=== PATIENT | female | born 1980 | race Caucasian/White ===

== ENCOUNTER 2016-08-12 05:51 | Outpatient (CLI) | payer OTHER ==
[~2016-08-12] VITALS: Ht 165.1 cm; Wt 96.2 kg
[~2016-08-12 05:51] MED LIST: ALBU2.5V52 INH; AZIT-21 PO; PRED10TA PO
--- OUTSIDE RECORDS SUMMARY | 2016-08-12 05:54 | XMS REPORT | Continuity of Care Document ---
Author Author [facility] Organization [facility] Address Unknown Phone Unavailable Allergies Active Description Code Type Severity Reaction Onset Reported/Identified Relationship to Patient Clinical Status Yes No Known Drug Allergies [id number] Drug Allergy Unknown N/ A 04/25/2007 Medications Problems Date Dx Coded Attending Type Code Diagnosis Diagnosed By 2014 TERRY BRIGGS MD R Ot 466.0 2014 TERRY BRIGGS MD R Ot 799.02 10/08/2014 Ot 278.01 10/08/2014 Ot 530.81 10/08/2014 Ot 553.3 10/08/2014 Ot V72.83 06/26/2015 TERRY BRIGGS MD R Ot R60.9 06/26/2015 TERRY BRIGGS MD R Ot R60.9 08/21/2015 PAPITO DICKERSON MD Ot R53.83 08/30/2015 TERRY BRIGGS MD Ot R60.9 Procedures Results Encounters ACCT No. Visit Date/Time Discharge Status Pt. Type Provider Facility Loc./Unit Complaint [id number] 07/15/2014 09:16:00 2014 13:05:00 DIS Inpatient TERRY BRIGGS MD [facility] [address] [id number] 11/19/2012 14:19:00 2012 23:59:59 CLS Outpatient [id number] 08/12/2016 05:51:00 ACT Outpatient PAPITO DICKERSON MD [facility] PREOP REFLUX [id number] 06/23/2015 11:59:00 ACT Outpatient TERRY BRIGGS MD [facility] LAB [id number] 06/12/2015 09:01:00 ACT Outpatient PAPITO DICKERSON MD [facility] LAB [id number] 11/24/2009 07:38:00 Document Registration
[2016-08-12] MEDS ORDERED: OMEP20TA7 PO (14:51)
[2016-08-12] MEDS ORDERED: SUCR1TAB36 PO (14:51)
[2016-08-13] MEDS ORDERED: FLUC100T PO (12:46)
== END 2016-08-12 14:58 ==
LOC: PREOP 05:51
PROVIDERS: ATTEND Surgery Pediatric Surgery
DX: Z01.818 Encounter for other preprocedural examination (principal); K21.9 Gastro-esophageal reflux disease without esophagitis

== ENCOUNTER 2016-08-13 10:40 | Day surgery (SDC) | payer OTHER ==
[~2016-08-13] VITALS: Ht 165.1 cm; Wt 96.2 kg
[~2016-08-13 10:40] MED LIST changes: +OMEP20TA7 PO; +SUCR1TAB36 PO
[2016-08-13] MEDS ORDERED: NS IV 500 ML 500 ML IV PRN (10:55)
[2016-08-13] MEDS ORDERED: NS IV 500 ML 500 ML ONE (10:58)
[2016-08-13 11:00] VITALS: BP 129/95
[2016-08-13] MEDS ORDERED: HURRICAINE EXT TUBE (BENZOCAINE) XX PRN (11:00)
[2016-08-13] MEDS ORDERED: NALOXONE 0.4 MG/ML 1 ML (NARCAN) VIAL IVP PRN (11:00)
[2016-08-13] MEDS ORDERED: FLUMAZENIL (ROMAZICON) 0.1 MG/ML 5 ML VIAL INJ PRN (11:00)
[2016-08-13] MEDS ORDERED: LIDOCAINE JELLY 2% (XYLOCAINE) 5 ML TUBE MM PRN (11:00)
--- NOTE | 2016-08-13 11:03 | Progress Note-Pre Operative ---
Pre-Operative Progress Note H&P Reviewed The H&P was reviewed, patient examined and no changes noted. Date H&P Reviewed: Aug 13, 2016 Time H&P Reviewed: 11:00 Pre-Operative Diagnosis: PAPITO HAYNES MD Aug 13, 2016 11:03 am
--- NOTE | 2016-08-13 11:04 | Conscious Sedation/ASA ---
Conscious Sedation Pre-Proced Time Reviewed: 11:00 ASA Class: 2 Airway Mallampati Classification: ([place] appropriate class) I. II. III, IV Lungs Heart ASA score ASA 1: a normal healthy patient ASA 2: a patient with a mild systemic disease (mid diabetes, controlled hypertension, obesity ASA 3: a patient with a severe systemic disease that limits activity (angina , COPD, prior Myocardial infarction) ASA 4: a patient with an incapacitating disease that is a constant threat to life (CHF, renal failure) ASA 5: a moribund patient not expected to survive 24 hrs. (ruptured aneurysm) ASA 6: a declared brain patient whose organs are being harvested. For emergent operations, add the letter E after the classification Grade 2 Sedation Plan: Analgesia, Amnesia, Plan communicated to team members, Discussed options with patient/fam, Discussed risks with patient/fam Note The patient is an appropriate candidate to undergo the planned procedure, sedation, and anesthesia. The patient immediately re-assessed prior to indication. PAPITO DICKERSON MD Aug 13, 2016 11:04 am
[2016-08-13] MEDS ORDERED: morphine INJ 10 MG/ML 1ML (SYR OR VIAL) IV PRN (11:15)
[2016-08-13] MEDS ORDERED: ONDANSETRON 4 MG/2 ML (SDV) Z0FRAN IV PRN (11:15)
[2016-08-13] MEDS ORDERED: ACETAMINOPHEN 325 MG TABLET/CAPLET (TYLENOL) PO PRN (11:15)
[2016-08-13] MEDS ORDERED: HYDROcodone/APAP 5 MG/325 MG (LORTAB) TAB PO PRN (11:15)
[2016-08-13] MEDS ORDERED: fentaNYL INJECTION 100 MCG/2 ML AMP ONE (11:59)
[2016-08-13] MEDS ORDERED: MIDAZOLAM 2 MG/2 ML (VERSED) VIAL ONE ×5 (11:59→12:17)
[2016-08-13] MEDS ORDERED: HURRICAINE EXT TUBE (BENZOCAINE) ONE (11:59)
[2016-08-13] MEDS ORDERED: LIDOCAINE JELLY 2% (XYLOCAINE) 5 ML TUBE ONE (11:59)
[2016-08-13] MEDS: MIDAZOLAM 2 MG/2 ML (VERSED) VIAL IVP PRN ×5 (12:05→12:17)
[2016-08-13] MEDS: fentaNYL INJECTION 100 MCG/2 ML AMP IVP PRN ×2 (12:06→12:09)
--- NOTE | 2016-08-13 12:45 | Progress Note-Post Operative ---
Post-Operative Progess Note Pre-Operative Diagnosis GERD Post-Operative Diagnosis reflux esophagitis(class B), probable esophageal candidiasis, intact band, moderate gastritis. Post-Op Procedure Note Date of Procedure: Aug 13, 2016 Name of Procedure: EGD with bx and brushings Anesthesia Type CS Estimated blood loss (mL): minimal Specimen(s) collected esophageal brushings, GE jxn, antrum. PAPITO DICKERSON MD Aug 13, 2016 12:45 pm
[2016-08-13] MEDS ORDERED: FLUC100T PO (12:46)
--- NOTE | 2016-08-13 12:47 | Discharge Inst-Surgical ---
D/C Lap Instructions-KIDO New, Converted, or Re-Newed RX: RX on Chart Follow Up PRN Activity as tolerated High Fiber Diet 25g or more per day Avoid Alcohol, Caffeine, Spicy [place] and Acid foods. Drink 64 fluid oz or more of fluids per day. Symptoms to Report: Fever over 101 degree F, Nausea/Vomiting If any problems/questions: Contact your physician or go to Emergency Room PAPITO DICKERSON MD Aug 13, 2016 12:47 pm
[2016-08-13 13:00] VITALS: BP 112/58
[2016-08-13 13:30] VITALS: BP 114/78
[2016-08-13 13:40] VITALS: BP 112/58
--- NOTE | 2016-08-13 20:31 | PROCEDURE REPORT ---
PROCEDURE PHYSICIAN: PAPITO DICKERSON DATE OF PROCEDURE: 08/13/2016 PREOPERATIVE DIAGNOSIS: Gastroesophageal reflux disease. POSTOPERATIVE DIAGNOSES: 1. Reflux esophagitis, class B. 2. Probable esophageal candidiasis. 3. Intact band. 4. Moderate gastritis. PROCEDURE: EGD with biopsy and brushings. SURGEON: Dr. Dickerson. ANESTHESIA: Conscious sedation. ESTIMATED BLOOD LOSS: Minimal. FINDINGS: 1. White plaquish material on the distal esophagus suspicious for an esophageal candidiasis. 2. Reflux esophagitis, class B. 3. Intact band. No band slippage or erosion. 4. Moderate gastritis. DISPOSITION: The patient tolerated the procedure well. BRIEF HISTORY: Ms. Davida Bautista is a 36-year-old female with a history of morbid obesity, medical comorbidities including degenerative joint disease, low back, hips, knees, and ankle pain. She also has a history of bilateral lower extremity edema. She also does have a history of gastroesophageal reflux disease. She reports that this has worsened recently and progressed to regurgitation and nocturnal coughing. She reports that this is worse at night. She is currently on omeprazole 20 mg b.i.d. She states that she is able to tolerate a phase 3 regular diet with protein sources including lean meat, protein 3 times a day. She also reports she is able to take in approximately 1 cup of ground food volume per sitting. She also is able to take in greater than 64 fluid ounces of water daily. The patient was brought to the endoscopy suite, laid in the left lateral decubitus position. After adequate IV pain and sedative medications and conscious sedation anesthesia, the mouthpiece was applied. The endoscope was placed in the mouth, visualizing the pharynx and hypopharyngeal region. Vocal cords, epiglottis and vallecula identified and appeared to be normal. The endoscope was then gently intubated into the esophageal opening and the esophagus insufflated. The endoscope was then advanced through the first, second, and 3rd portions esophagus. At the distal esophagus, there was a white plaquish material coating the circumference of the esophagus most likely indicating esophageal candidiasis. Brushings were taken and sent for culture and sensitivity. The endoscope was then advanced through the GE junction where a reflux esophagitis, class B identified. A biopsy was taken of the GE junction. The gastric pouch was intact and appeared to be normal. The endoscope was easily advanced into the stomach and endoscope retroflexed visualizing an intact band with no erosion or slippage. There was a moderate gastritis. No ulcers, polyps or any neoplasms identified. A biopsy was taken of the antrum with forceps with visualization of good hemostasis. The endoscope was then advanced through the pylorus and into the first and second portions of duodenum which appeared normal with no distal obstructions. The endoscope was then slowly withdrawn while taking a second look and suctioning of residual air with no additional findings. The patient tolerated the procedure well. We will have her continue with medical management with smaller, more frequent meals, avoidance of eating at night, as well as continued high protein diet and once she feels restriction, then to stop eating and to not drink during meals as well as to decrease her caffeine intake. Job ID: [id number] Dictated Date: 08/13/2016 12:40:10 Clinical Systems Educator Date: 08/13/2016 20:23:51 / cynthia
== END 2016-08-13 13:40 | disposition home or self-care (01) ==
LOC: ENDO 10:40
PROVIDERS: ATTEND Surgery Pediatric Surgery
DX: K21.0 Gastro-esophageal reflux disease with esophagitis (principal); K29.70 Gastritis, unspecified, without bleeding; Z98.84 Bariatric surgery status
CPT/HCPCS: 87101; 88305

== ENCOUNTER → 2021-03-30 | Outpatient (CLI) | payer OTHER ==
[~2021-03-30] MED LIST changes: +FLUC100T PO
[2021-03-30 17:02] LABS: BASOPHILS # (AUTO) 0.1 10^3/uL (0.0-0.1); BASOPHILS % (AUTO) 1 % (0-10); EOSINOPHILS # (AUTO) 0.3 10^3/uL (0.0-0.3); EOSINOPHILS % (AUTO) 3 % (0-10); HEMATOCRIT 37 % (35-52); HEMOGLOBIN 12.3 g/dL (11.5-16.0); LYMPHOCYTES # (AUTO) 3.2 10^3/uL (1.0-4.0); LYMPHOCYTES % (AUTO) 32 % (12-44); MEAN CORPUSCULAR HEMOGLOBIN 31 pg (25-34); MEAN CORPUSCULAR HGB CONC 33 g/dL (32-36); MEAN CORPUSCULAR VOLUME 93 fL (80-99); MEAN PLATELET VOLUME 10.2 fL (9.0-12.2); MONOCYTES # (AUTO) 0.5 10^3/uL (0.0-1.0); MONOCYTES % (AUTO) 5 % (0-12); NEUTROPHILS # (AUTO) 5.9 10^3/uL (1.8-7.8); NEUTROPHILS % (AUTO) 59 % (42-75); PLATELET COUNT 285 10^3/uL (130-400); WHITE BLOOD COUNT 9.9 10^3/uL (4.3-11.0)
[2021-03-30 17:15] LABS: ALBUMIN 3.6 GM/DL (3.2-4.5); POTASSIUM 3.6 MMOL/L (3.6-5.0)
[2021-03-30 17:17] LABS: CALCIUM 8.9 MG/DL (8.5-10.1)
[2021-03-30 17:18] LABS: TOTAL PROTEIN 7.2 GM/DL (6.4-8.2)
[2021-03-30 17:20] LABS: BILIRUBIN,TOTAL 0.3 MG/DL (0.1-1.0)
[2021-03-30 17:22] LABS: CREATININE SERUM 0.9 MG/DL (0.60-1.30)
[2021-03-30 17:47] LABS: FREE T4 (FREE THYROXINE) 0.92 NG/DL (0.70-1.48)
== END ==
LOC: LAB 16:28
PROVIDERS: ATTEND Family Medicine
DX: Z13.1 Encounter for screening for diabetes mellitus (principal); Z00.00 Encounter for general adult medical examination without abnormal findings; R05.9 Cough, unspecified; R53.83 Other fatigue; R51.9 Headache, unspecified
CPT/HCPCS: 36415; 80053; 82670; 83001; 83002; 83036; 84144; 84439; 84443; 85025

== ENCOUNTER → 2021-04-03 | Outpatient (CLI) | payer OTHER | LOC: LAB 12:46 | PROVIDERS: ATTEND Family Medicine | DX: Z20.822 Contact with and (suspected) exposure to COVID-19 (principal) | CPT/HCPCS: 36415; 86769 ==

== ENCOUNTER → 2022-09-07 | Outpatient (CLI) | payer OTHER ==
[~2022-09-07] MED LIST changes: +OMEP20TA56 PO; -OMEP20TA7 PO
--- NOTE | 2022-09-07 17:06 | Diagnostic Imaging Report ---
INDICATION: Left shoulder pain. TECHNIQUE: AP, oblique, and transscapular views of the left shoulder were obtained. FINDINGS: No fracture or acute bony abnormality is seen. The joint spaces are unremarkable. IMPRESSION: Negative left shoulder. Dictated by: Dictated on workstation # [id number]
== END ==
LOC: RAD 13:12
PROVIDERS: ATTEND Family Medicine
DX: M25.511 Pain in right shoulder (principal)
CPT/HCPCS: 73030

== ENCOUNTER 2022-10-01 13:29 | Outpatient (RCR) | payer OTHER | END 2022-10-03 | disposition home or self-care (01) | PROVIDERS: ATTEND Family Medicine | DX: M25.512 Pain in left shoulder (principal) ==

== ENCOUNTER 2022-10-18 09:56 | Outpatient (RCR) | payer OTHER | END 2022-11-03 | disposition home or self-care (01) | PROVIDERS: ATTEND Family Medicine | DX: M25.512 Pain in left shoulder (principal) ==

== ENCOUNTER → 2022-10-22 | Outpatient (CLI) | payer OTHER ==
--- NOTE | 2022-10-22 08:58 | Diagnostic Imaging Report ---
EXAMINATION: Magnetic resonance imaging of the left shoulder without contrast. DATE: October 22, 2022. COMPARISON: Left shoulder radiographs September 07, 2022. HISTORY: 42-year-old female, left shoulder pain. TECHNIQUE: Magnetic Resonance Imaging sequences were performed of the shoulder without contrast. FINDINGS: ROTATOR CUFF, LIGAMENTS, TENDONS, AND MUSCLES: The supraspinatus, infraspinatus, teres minor, and subscapularis tendons and muscles are intact. There is normal rotator cuff muscle bulk and signal. LONG HEAD OF BICEPS: The biceps labral attachment and long head of the biceps tendon is intact. The long head of the biceps tendon is normally positioned within the bicipital groove. GLENOHUMERAL JOINT: The humeral head is well positioned relative to the glenoid. The labrum is grossly intact. There is no identified paralabral cyst. The articular cartilage is grossly intact. There is no joint effusion. ACROMIOCLAVICULAR JOINT: The acromioclavicular joint is normally aligned. The coracoclavicular and coracoacromial ligaments are intact. There are no degenerative changes of the acromioclavicular joint. BONE: There is no os acromiale. There is no Hill-Sachs deformity. There is no acute fracture, bone contusion, or evidence of osteonecrosis. BURSAE AND SOFT TISSUES: The bursae and soft tissue surrounding the shoulder are unremarkable. IMPRESSION: 1. Unremarkable MRI of the left shoulder. Dictated by: Dictated on workstation # [id number]
== END ==
LOC: RAD 07:32
PROVIDERS: ATTEND Family Medicine
DX: M25.512 Pain in left shoulder (principal)
CPT/HCPCS: 73221